=== PATIENT | male | born 1970 | race Caucasian/White ===

== ENCOUNTER 2018-12-25 21:36 | Observation (INO) ==
[2018-12-25] MEDS ORDERED: Ketorolac 30 MG/ML VIAL IVP ONE (23:09)
[2018-12-25] MEDS ORDERED: *HR* LORazepam 2 MG/ML VIAL IVP ONE (23:10)
[2018-12-25] MEDS ORDERED: Ketorolac 30 MG/ML VIAL IVP PRN (23:21)
[2018-12-25] MEDS ORDERED: Acetaminophen 325 MG TABLET PO PRN (23:21)
[2018-12-25] MEDS ORDERED: Ondansetron 4 MG/2 ML VIAL IVP PRN (23:21)
[2018-12-25] MEDS ORDERED: Ringers Solution, Lactated 1,000 ML IVC SCH (23:45)
[2018-12-26 05:12] LABS: Basophils % 0.2 %; Eosinophils % 0.1 %; Hematocrit 37.6 % (37.5-50.1); Hemoglobin 12.6 g/dL (12.9-16.9); Immature Granulocytes % 0.3 % (0-4); Lymphocytes # 1.3 K/mcL (0.6-4.6); Lymphocytes % 11.7 %; Mean Corpuscular HGB Conc 33.5 g/dL (31.6-35.5); Mean Corpuscular Hemoglobin 32.6 pg (28.0-33.3); Mean Corpuscular Volume 97.4 fL (83.0-100.0); Mean Platelet Volume 9.2 fL (9.4-12.4); Monocytes % 9.1 %; Neutrophils # 8.9 K/mcL (1.6-8.9); Platelet Count 180 K/mcL (140-400); Red Blood Count 3.86 M/mcL (4.19-5.50); Red Cell Distribution Width 12.3 % (11.5-14.5); Segmented Neutrophils % 78.6 %; White Blood Count 11.3 K/mcL (4.3-11.1)
[2018-12-26 05:19] LABS: Prothrombin Time 11.6 Seconds (9.4-12.1)
[2018-12-26 05:22] LABS: Activated Partial Thrombo Time 28.5 Seconds (26.0-36.0)
[2018-12-26 05:35] LABS: BUN/Creatinine Ratio 11 (6-26); Blood Urea Nitrogen 16 mg/dL (6-20); Calcium 8.6 mg/dL (8.6-10.3); Carbon Dioxide 23 mEq/L (23-29); Chloride 106 mEq/L (98-107); Glucose 91 mg/dL (70-105); Osmolality,Calculated 285 (280-300); Potassium 4.2 mEq/L (3.5-5.1); Sodium 137 mEq/L (136-145); eGFR For African Americans > 60 (> 60); eGFR For Non-African Americans 53 (> 60)
[2018-12-26] MEDS ORDERED: *HR* HYDROmorphone (PF) 1 MG/ML SYRINGE IVP PRN (09:54)
[2018-12-26] MEDS ORDERED: *HR* OxyCODONE Immed Rel 5 MG TABLET PO PRN (09:54)
[2018-12-26] MEDS ORDERED: *HR* Promethazine 25 MG/ML VIAL IVP PRN (09:54)
[2018-12-26] MEDS ORDERED: Ondansetron 4 MG/2 ML VIAL IVP ONE (09:54)
[2018-12-26] MEDS ORDERED: Acetaminophen IV 1,000 MG/100 ML INFUS..BTL ONE (09:57)
[2018-12-26] MEDS ORDERED: Dexamethasone 4 MG/ML VIAL ONE (10:09)
[2018-12-26] MEDS ORDERED: Lidocaine -MPF 2% 2 ML VIAL ONE (10:09)
[2018-12-26] MEDS ORDERED: *HR* Propofol 200 MG/20 ML VIAL IVP ONE (10:09)
[2018-12-26] MEDS ORDERED: CeFAZolin Syr 2,000MG/20 ML 2,000 MG/20 ML SYRINGE IVPB ONE (10:10)
[2018-12-26] MEDS ORDERED: *HR* FentaNYL (PF) 100 MCG/2 ML VIAL ONE (10:12)
[2018-12-26] MEDS ORDERED: *HR* Midazolam HCl 2 MG/2 ML VIAL ONE (10:12)
[2018-12-26] MEDS ORDERED: Isovue-300 50ML VIAL ONE (10:16)
[2018-12-26] MEDS ORDERED: Ondansetron 4 MG/2 ML VIAL IVP PRN (11:39)
[2018-12-26] MEDS ORDERED: Ketorolac 30 MG/ML VIAL IVP PRN (11:39)
[2018-12-26] MEDS ORDERED: Acetaminophen 325 MG TABLET PO PRN (11:39)
[2018-12-26 15:24] VITALS: BP 117/75
== END 2018-12-26 16:35 | disposition home or self-care (01) ==
LOC: 3ANU → SUATTDRO 22:33
PROVIDERS: ADMIT Internal Medicine; ATTEND Student in an Organized Health Care Education/Training Program

== ENCOUNTER 2021-06-03 23:11 | Inpatient (IN) ==
[2021-06-03] MEDS ORDERED: *HR* Ticagrelor 90 MG TABLET PO ONE (23:17)
[2021-06-03] MEDS ORDERED: *HR* Heparin 5,000 UNIT/ML VIAL IVP ONE (23:17)
[2021-06-03] MEDS ORDERED: *HR* Heparin 5,000 UNIT/ML VIAL IVP PRN ×2 (23:17)
[2021-06-03] MEDS ORDERED: Heparin 25,000UNIT/250ML 1/2NS 25,000 UNIT/250 ML IV.SOLN IVC SCH (23:30)
[2021-06-03] MEDS ORDERED: 0.9 % Sodium Chloride 1,000 ML ONE ×2 (23:44→23:49)
[2021-06-03] MEDS ORDERED: Heparin 1,000 UNITS/500 mL 500 ML ONE (23:45)
[2021-06-03] MEDS ORDERED: Nitroglycerin 1,000 MCG/5 ML VIAL IV ONE (23:45)
[2021-06-03] MEDS ORDERED: *HR* Heparin 10,000 UNIT/10 ML VIAL ONE (23:45)
[2021-06-03] MEDS ORDERED: ISOVUE-370 200 ML INFUS..BTL ONE (23:45)
[2021-06-03 23:46] LABS: Hematocrit 44.9 % (37.5-50.1); Hemoglobin 15.2 g/dL (12.9-16.9); Immature Granulocytes % 0.4 % (0-4); Mean Corpuscular HGB Conc 33.9 g/dL (31.6-35.5); Mean Corpuscular Hemoglobin 33.5 pg (28.0-33.3); Mean Corpuscular Volume 98.9 fL (83.0-100.0); Mean Platelet Volume 9.3 fL (9.4-12.4); Platelet Count 273 K/mcL (140-400); Red Blood Count 4.54 M/mcL (4.19-5.50); Red Cell Distribution Width 12.5 % (11.5-14.5); Segmented Neutrophils % 76.7 %; White Blood Count 13.9 K/mcL (4.3-11.1)
[2021-06-03 23:47] LABS: Basophils # 0.1 K/mcL (0.0-0.2); Basophils % 0.5 %; Eosinophils # 0.1 K/mcL (0.0-0.6); Eosinophils % 0.9 %; Lymphocytes % 14.6 %; Monocytes % 6.9 %; Neutrophils # 10.6 K/mcL (1.6-8.9)
[2021-06-03] MEDS ORDERED: *HR* FentaNYL (PF) 100 MCG/2 ML VIAL ONE (23:48)
[2021-06-03] MEDS ORDERED: *HR* Midazolam HCl 2 MG/2 ML VIAL ONE (23:48)
[2021-06-03] MEDS ORDERED: Tirofiban 12.5 MG/250ML 12.5 MG/250 ML BAG ONE (23:52)
[2021-06-03 23:55] LABS: INR 1.1; Prothrombin Time 12.2 Seconds (9.4-12.1)
[2021-06-04] MEDS ORDERED: Perflutren Lipid Microsphere 1.3 ML in 0.9 % Sodium Chloride 8.7 ML IVP PRN (00:02)
[2021-06-04 00:05] LABS: BUN/Creatinine Ratio 14 (6-26); Blood Urea Nitrogen 14 mg/dL (6-20); Calcium 9.3 mg/dL (8.6-10.3); Carbon Dioxide 25 mEq/L (23-29); Chloride 106 mEq/L (98-107); Glucose 126 mg/dL (70-105); Magnesium 2.2 mg/dL (1.6-2.6); Osmolality,Calculated 290 (280-300); Sodium 139 mEq/L (136-145); eGFR For African Americans > 60 (> 60); eGFR For Non-African Americans > 60 (> 60)
[2021-06-04 00:09] LABS: Troponin I 0.24 ng/mL (< 0.04)
[2021-06-04] MEDS ORDERED: *HR* Atropine Sulfate 1 MG/10 ML SYRINGE ONE (00:14)
[2021-06-04] MEDS ORDERED: Tirofiban 12.5 MG/250ML 12.5 MG/250 ML BAG IVC SCH (00:15)
[2021-06-04] MEDS ORDERED: ISOVUE-370 200 ML INFUS..BTL ONE (00:29)
[2021-06-04 02:17] LABS: Basophils % 0.4 %; Eosinophils # 0.1 K/mcL (0.0-0.6); Eosinophils % 0.6 %; Hematocrit 40.8 % (37.5-50.1); Hemoglobin 14.1 g/dL (12.9-16.9); Immature Granulocytes % 0.5 % (0-4); Lymphocytes # 1.1 K/mcL (0.6-4.6); Lymphocytes % 10.4 %; Mean Corpuscular HGB Conc 34.6 g/dL (31.6-35.5); Mean Corpuscular Hemoglobin 33.4 pg (28.0-33.3); Mean Corpuscular Volume 96.7 fL (83.0-100.0); Mean Platelet Volume 9.1 fL (9.4-12.4); Monocytes # 0.6 K/mcL (0.0-1.3); Monocytes % 5.1 %; Platelet Count 231 K/mcL (140-400); Red Blood Count 4.22 M/mcL (4.19-5.50); Red Cell Distribution Width 12.7 % (11.5-14.5); White Blood Count 10.8 K/mcL (4.3-11.1)
[2021-06-04 02:33] LABS: BUN/Creatinine Ratio 14 (6-26); Blood Urea Nitrogen 12 mg/dL (6-20); Calcium 8.4 mg/dL (8.6-10.3); Carbon Dioxide 22 mEq/L (23-29); Chloride 109 mEq/L (98-107); Glucose 115 mg/dL (70-105); Osmolality,Calculated 283 (280-300); Potassium 3.8 mEq/L (3.5-5.1); Sodium 136 mEq/L (136-145); eGFR For African Americans > 60 (> 60); eGFR For Non-African Americans > 60 (> 60)
[2021-06-04] MEDS ORDERED: Acetaminophen 325 MG TABLET PO PRN (03:09)
[2021-06-04] MEDS: *HR* Ticagrelor 90 MG TABLET PO SCH ×2 (09:06→20:34)
[2021-06-04] MEDS: Aspirin Enteric Coated 81 MG Tablet PO SCH (09:56)
[2021-06-05] MEDS ORDERED: Nitroglycerin 0.4 MG TAB.SUBL SL PRN (08:30)
[2021-06-05] MEDS: Aspirin Enteric Coated 81 MG Tablet PO SCH (09:14)
[2021-06-05] MEDS: *HR* Ticagrelor 90 MG TABLET PO SCH ×2 (09:14→20:06)
[2021-06-06 04:43] LABS: Hematocrit 45.3 % (37.5-50.1); Mean Corpuscular HGB Conc 34.7 g/dL (31.6-35.5); Mean Corpuscular Volume 95.2 fL (83.0-100.0); Mean Platelet Volume 9.6 fL (9.4-12.4); Platelet Count 226 K/mcL (140-400); Red Blood Count 4.76 M/mcL (4.19-5.50); Red Cell Distribution Width 12.4 % (11.5-14.5); White Blood Count 9.4 K/mcL (4.3-11.1)
[2021-06-06 04:51] LABS: BUN/Creatinine Ratio 23 (6-26); Blood Urea Nitrogen 18 mg/dL (6-20); Calcium 9.1 mg/dL (8.6-10.3); Carbon Dioxide 24 mEq/L (23-29); Chloride 105 mEq/L (98-107); Glucose 87 mg/dL (70-105); Osmolality,Calculated 281 (280-300); Potassium 4.2 mEq/L (3.5-5.1); Sodium 135 mEq/L (136-145); eGFR For African Americans > 60 (> 60); eGFR For Non-African Americans > 60 (> 60)
[2021-06-06 04:57] LABS: Hemoglobin 15.7 g/dL (12.9-16.9)
[2021-06-06 07:25] VITALS: BP 96/57; TEMP 97.6; O2SAT 96
[2021-06-06] MEDS: *HR* Ticagrelor 90 MG TABLET PO SCH (08:37)
[2021-06-06] MEDS: Aspirin Enteric Coated 81 MG Tablet PO SCH (08:38)
[2021-06-06 10:09] VITALS: PULSE 65
== END 2021-06-06 10:10 | disposition home or self-care (01) | DRG 174 ==
LOC: EMEROOARM 23:11 → 2NNU 23:11
PROVIDERS: ADMIT Internal Medicine Cardiovascular Disease; ATTEND Internal Medicine Cardiovascular Disease